=== PATIENT | female | born 1990 | race Caucasian/White ===

== ENCOUNTER 2017-07-14 12:09 | Emergency (ER) | payer MEDICAID ==
[2017-07-14 13:40] VITALS: BP 131/90
== END 2017-07-14 13:40 | disposition home or self-care (01) ==
LOC: ED 12:09
DX: N72 Inflammatory disease of cervix uteri (principal)
CPT/HCPCS: 87491; 87591; J0696

== ENCOUNTER 2018-12-30 19:36 | Emergency (ER) | payer BC ==
[~2018-12-30] VITALS: Ht 162.6 cm; Wt 50.3 kg
[2018-12-30 19:38] VITALS: Ht 162.6 cm; Wt 50.3 kg
[2018-12-30 20:36] LABS: UA SPECIFIC GRAVITY 1.025 (1.005-1.035); microscopic required? YES; urine erythrocyte 1+ (NEGATIVE)
[2018-12-30 23:35] VITALS: BP 102/61
== END 2018-12-30 23:35 | disposition home or self-care (01) ==
LOC: ED 19:36
PROVIDERS: Emergency Medicine
DX: J36 Peritonsillar abscess (principal); N39.0 Urinary tract infection, site not specified
CPT/HCPCS: J0295; J1100; J1885; J2001; J2060; J7030

== ENCOUNTER 2019-01-01 13:37 | Emergency (ER) | payer BC ==
[~2019-01-01] VITALS: Ht 157.5 cm; Wt 51.4 kg
[2019-01-01 14:06] VITALS: BP 106/73; Ht 157.5 cm; Wt 51.4 kg
== END 2019-01-01 15:13 | disposition home or self-care (01) ==
LOC: ED 13:37
DX: J36 Peritonsillar abscess (principal); Z88.6 Allergy status to analgesic agent; Z88.1 Allergy status to other antibiotic agents

== ENCOUNTER 2019-12-06 01:10 | Emergency (ER) | payer BC ==
[~2019-12-06] VITALS: Ht 157.5 cm; Wt 52.7 kg
[2019-12-06 01:17] VITALS: BP 126/91; Ht 157.5 cm; Wt 52.7 kg
== END 2019-12-06 02:43 | disposition home or self-care (01) ==
LOC: ED 01:10
DX: A54.9 Gonococcal infection, unspecified (principal); Z88.5 Allergy status to narcotic agent; Z88.8 Allergy status to other drugs, medicaments and biological substances
CPT/HCPCS: J0696

== ENCOUNTER 2020-12-06 15:19 | Emergency (ER) | payer BC ==
[~2020-12-06] VITALS: Ht 160 cm; Wt 57.6 kg
[2020-12-06 15:37] VITALS: Ht 160 cm; Wt 57.6 kg
[2020-12-06 16:36] VITALS: BP 110/71
== END 2020-12-06 16:36 | disposition home or self-care (01) ==
LOC: ED 15:19
DX: R10.30 Lower abdominal pain, unspecified (principal); R19.7 Diarrhea, unspecified; R30.0 Dysuria; Z88.8 Allergy status to other drugs, medicaments and biological substances